=== PATIENT | male | born 1975 ===

== ENCOUNTER → 2016-12-05 | Outpatient (CLI) | payer OTHER ==
--- NOTE | 2016-12-05 14:21 | CR ---
EXAMINATION: Left ankle HISTORY: Pain COMPARISON: 05/02/2016 TECHNIQUE: 2 views FINDINGS/IMPRESSION: Postsurgical changes are noted within the distal fibula with recent hardware re moval. There is no fracture or acute osseous abnormality demonstrated. Bone mineralization and joint spaces are otherwise preserved.
== END ==
LOC: MW.CHORTHO 07:46
PROVIDERS: ATTEND Orthopaedic Surgery
DX: M25.572 Pain in left ankle and joints of left foot (principal); Z98.890 Other specified postprocedural states
CPT/HCPCS: 73600-26-LT; 73600-LT